=== PATIENT | male | born 1950 | race Caucasian/White ===

== ENCOUNTER 2017-03-27 22:28 | Emergency (ER) | payer MEDICARE, OTHER ==
[~2017-03-27] VITALS: Ht 180.3 cm; Wt 95.7 kg
--- OUTSIDE RECORDS SUMMARY | ~2017-03-27 | XMS | Clinical Summary ---
Demographics + + + | Address | [address] | | | [place] [address] | + + + | Home Phone | | + + + | Preferred Language | Unknown | + + + | Marital Status | Single | + + + | Scientologist Affiliation | Unknown | + + + | Race | White | + + + | Ethnic Group | Not or | + + + Author + + + | Author | [facility] | + + + | Organization | [facility] | + + + | Address | Unknown | + + + | Phone | Unavailable | + + + Care Team Providers + +------+ + | Care Assistant Professor Name | Role | Phone | + +------+ + PP | Unavailable | + +------+ + Source Comments JI is fully live on both [facility] and [facility] InPatient.[facility] Allergies Not on File Current Medications Not on file Active Problems Not on file Social History + +-------+ +--------+------+ | Tobacco Use | Types | Packs/Day | Years | Date | | | | | Used | | + +-------+ +--------+------+ | Never Assessed | | | | | + +-------+ +--------+------+ + + + | Sex Assigned at | Date Recorded | | | | + + + | Not on file | | + + + Plan of Treatment + + + + + | Health Maintenance | Due Date | Last Done | Comments | + + + + + | INFLUENZA VACCINE | | | | | (FLU SHOT) | 7 | | | + + + + + Results Not on filefrom Last 3 Months"
--- OUTSIDE RECORDS SUMMARY | ~2017-03-27 | XMS | Clinical Summary ---
Demographics + + + | Address | [address] | | | [place] [address] | + + + | Home Phone | | + + + | Preferred Language | Unknown | + + + | Marital Status | Single | + + + | Pentecostal Affiliation | Unknown | + + + | Race | White | + + + | Ethnic Group | Not or | + + + Author + + + | Author | [facility] | + + + | Organization | [facility] | + + + | Address | Unknown | + + + | Phone | Unavailable | + + + Care Team Providers + +------+ + | Care Electronic Prepress System Operator Name | Role | Phone | + +------+ + PP | Unavailable | + +------+ + Source Comments JI is fully live on both [facility] and [facility] InPatient.[facility] Allergies Not on File Current Medications Not [...]
[~2017-03-27 22:28] MED LIST: "\\\"BP MED\\\""; ASPIR-TRIN325 MG PO; GLUCOPHAGE500 MG PO; GLUCOVANCE PO; LIPITOR PO; NORCO 5-325 TA1 EACH PO; PRANDIN; PRAVACHOL20 MG PO; PREDNISONE20 MG PO; VALIUM5 MG PO
[2017-03-28] MEDS ORDERED: NORCO 5-325 TA1 EACH PO (00:56)
== END 2017-03-28 01:40 | disposition home or self-care (01) ==
LOC: ED 22:28
DX: N23 Unspecified renal colic (principal); E11.9 Type 2 diabetes mellitus without complications; E78.00 Pure hypercholesterolemia, unspecified; G43.909 Migraine, unspecified, not intractable, without status migrainosus; I10 Essential (primary) hypertension; Z79.899 Other long term (current) drug therapy; Z79.84 Long term (current) use of oral hypoglycemic drugs
CPT/HCPCS: 74177; 80053; 81001; 83690; 85025; 96361; 96374; 96375; 96376; 99284; J1170; J2405; J7030; Q9967

== ENCOUNTER 2018-08-09 03:59 | Emergency (ER) | payer MEDICARE, OTHER ==
[~2018-08-09] VITALS: Ht 180.3 cm; Wt 95.2 kg
--- OUTSIDE RECORDS SUMMARY | ~2018-08-09 | XMS | Clinical Summary ---
Demographics + + + | Address | [address] | | | [place] [address] | + + + | Home Phone | | + + + | Preferred Language | Unknown | + + + | Marital Status | | + + + | Yarsani Affiliation | Unknown | + + + | Race | Unknown | + + + | Ethnic Group | Unknown | + + + Author + + + | Author | [facility] | | | and Husseinana | + + + | Organization | [facility] | | | and [place] | + + + | Address | Unknown | + + + | Phone | Unavailable | + + + Support + + + + + | Name | Relationship | Address | Phone | + + + + + | Vikram Ojeda | JESSICA | [address] | | | | | [place], [place] | | | | | [address] | | + + + + + | Ngoc Ojeda | ECON | [address] | | | | | [place], [place] | | | | | [address] | | + + + + + Care Team Providers + +------+ + | Care Coil Winding Supervisor Name | Role | Phone | + +------+ + | Igor Doll DO | PP | | + +------+ + Allergies No Known Allergies Current Medications + + +--------+---------+------+------+-------+ | Prescription | Sig. | Disp. | Refills | Star | End | Statu | | | | | | t | Date | s | | | | | | Date | | | + + +--------+---------+------+------+-------+ | | 2 tablets by mouth | | | 01/24 | | Activ | | glyBURIDE-metformin | two times daily | | | 08/12 | | e | | (GLUCOVANCE) 2.5-500 | | | | 12 | | | | MG per tablet | | | | | | | + + +--------+---------+------+------+-------+ | moexipril | Take 15 mg by mouth | | | 01/24 | | Activ | | (UNIVASC) 15 MG | Daily. | | | 08/12 | | e | | tablet | | | | 12 | | | + + +--------+---------+------+------+-------+ | pravastatin | Take 1 tablet daily | | | 01/24 | | Activ | | (PRAVACHOL) 80 MG | as directed | | | 08/12 | | e | | tablet | | | | 12 | | | + + +--------+---------+------+------+-------+ | | Take 1 tablet by | | | | | Activ | | aspirin-acetaminophe | mouth as needed. | | | | | e | | n-caffeine (EXCEDRIN | | | | | | | | EXTRA STRENGTH) | | | | | | | | 250-250-65 MG per | | | | | | | | tablet | | | | | | | + + +--------+---------+------+------+-------+ | ondansetron | Take 4 mg by mouth | | | | | Activ | | (ZOFRAN ODT) 4 mg | every 8 hours as | | | | | e | | disintegrating | needed for Nausea. | | | | | | | tablet | | | | | | | + + +--------+---------+------+------+-------+ | | Take 1-2 tablets by | 25 | 0 | 11/0 | | Activ | | HYDROcodone-acetamin | mouth every 4 hours | tablet | | 3/20 | | e | | ophen (NORCO) 5-325 | as needed for Pain. | | | 17 | | | | mg per tablet | | | | | | | + + +--------+---------+------+------+-------+ Active Problems + + + | Problem | Noted Date | + + + | DDD (degenerative disc disease), lumbar - mild, worst at L4-L5 | 11/03/2012 | | where there is mild central and foraminal stenosis | | + + + | Leg pain, left - uncertain etiology. Likely referred from | 06/23/2012 | | lumbosacral region | | + + + | SACROILIITIS | 12/11/2011 | + + + | ARTHRITIS, LUMBAR SPINE | 12/11/2011 | + + + | LOW BACK PAIN, CHRONIC | | + + + | DIABETES MELLITUS, WITHOUT COMPLICATIONS | | + + + Encounters +--------+ + + + + | Date | Type | Specialty | Care Team | Description | +--------+ + + + + | 07/23/ | Ancillary | | Provider, | | | 2019 | Orders | | MD Supriya | | +--------+ + + + + | 05/22/ | Imaging | | Provider, | | | 2018 | Exam | | Historical, MD | | +--------+ + + + + from Last 3 Months Social History + +-------+ +--------+------+ | Tobacco Use | Types | Packs/Day | Years | Date | | | | | Used | | + +-------+ +--------+------+ | Never Smoker | | | | | + +-------+ +--------+------+ + +---+---+---+ | Smokeless Tobacco: | | | | | Never Used | | | | + +---+---+---+ + + +---------+ + | Alcohol Use | Drinks/We | oz/Week | Comments | | | ek | | | + + +---------+ + | Yes | | | rarely | + + +---------+ + + + + | Sex Assigned at | Date Recorded | | | | + + + | Not on file | | + + + Last Filed Vital Signs + + + + | Vital Sign | Reading | Time Taken | + + + + | Blood Pressure | 165/75 | 03/28/20172114 PDT | + + + + | Pulse | 68 | 03/28/20172114 PDT | + + + + | Temperature | 36.5 C (97.7 F) | 03/28/20171946 PDT | + + + + | Respiratory Rate | 20 | 03/28/20172020 PDT | + + + + | Oxygen Saturation | 96% | 03/28/20172114 PDT | + + + + | Inhaled Oxygen | - | - | | Concentration | | | + + + + | Weight | 97 kg (213 lb 13.5 | 03/28/20171640 PDT | | | oz) | | + + + + | Height | 180.3 cm (5' 11") | 03/28/20171640 PDT | + + + + | Body Mass Index | 29.83 | 03/28/2017 1641 PDT | + + + + Plan of Treatment + + + + + | Health Maintenance | Due Date | Last Done | Comments | + + + + + | Vaccine: Zoster (2 | | 09/03/2011 | | | of 3) | 2 | | | + + + + + | Vaccine: | | | | | Pneumococcal 65+ | 6 | | | | Low/Medium Risk (1 | | | | | of 2 - PCV13) | | | | + + + + + | Vaccine: Influenza | | | | | (#1) | 8 | | | + + + + + | Vaccine: | | 02/16/2018 | | | Dtap/Tdap/Td (2 - | 8 | | | | Td) | | | | + + + + + Implants + +-------+------+ +--------+--------+--------+ | Implanted | Type | Area | Manufacture | Device | Expira | Model | | | | | r | | tion | / | | | | | | Identi | Date | Serial | | | | | | fier | | / Lot | + +-------+------+ +--------+--------+--------+ | Stent Uro Unvrs Sft 7fr 28cm | Stent | | ALICE JENKINS | | 10/09/ | [id number] | | - SnaImplanted: Qty: 1 on | | | INCORPORATE | | 2019 | /NA | | 03/28/2017 by Nik Smith, | | | D | | | /[id number] | | MD | | | | | | 12 | + +-------+------+ +--------+--------+--------+ Procedures + +--------+ + + + | Procedure Name | Priori | Date/Time | Associated Diagnosis | Comments | | | ty | | | | + +--------+ + + + | XR KNEE LEFT 4 + VW | Routin | 05/22/2018 | | Results for this | | | e | 0950 PST | | procedure are in the | | | | | | results section. | + +--------+ + + + from Last 3 Months Results XR Knee Left 4 + Vw (05/22/2018 0950) + + + | Narrative | Performed At | + + + | External films for comparison only | [facility] | | | | | No results will be in the chart. | | + + + + +---------+ + + | Performing | Address | City/State/Zipcode | Phone Number | | Organization | | | | + +---------+ + + | [facility] | | | | + +---------+ + + from Last 3 Months Insurance + +--------+ +--------+ + + | Payer | Benefi | Subscriber | Type | Phone | Address | | | t Plan | ID | | | | | | / | | | | | | | Group | | | | | + +--------+ +--------+ + + | MEDICARE | MEDICA | [id number] | Medica | [phone] | | | RE | | re | [phone] | | | | PART A | | | | | | | AND B | | | | | + +--------+ +--------+ + + | MODA | MODA | [id number] | Indemn | [phone] [address] [address] | | | HEALTH | | ity | [phone] | [place] [address] | | | MDCR | | | | | | | SUPPL | | | | | + +--------+ +--------+ + + + +--------+ +--------+ + + | Guarantor Name | Accoun | Relation to | Date | Phone | Billing Address | | | t Type | Patient | of | | | | | | | | | | + +--------+ +--------+ + + | NORMA OJEDA | Person | Self | [birth year] Home: | [address] | | | [address] | | [phone] | [phone] | [place], | | | [place] | | | [phone] | [place] [address] | + +--------+ +--------+ + +
--- OUTSIDE RECORDS SUMMARY | ~2018-08-09 | XMS | Encounter Summary ---
Demographics + + + | Address | [address] | | | [place] [address] | + + + | Home Phone | | + + + | Preferred Language | Unknown | + + + | Marital Status | | + + + | Synagogue Affiliation | Unknown | + + + | Race | Unknown | + + + | Ethnic Group | Unknown | + + + Author + + + | Author | [facility] | | | and [place] | + + + | Organization | [facility] | | | and [place] | + + + | Address | Unknown | + + + | Phone | Unavailable | + + + Support + + + + + | Name | Relationship | Address | Phone | + + + + + | Vikram Harrison | JESSICA | [address] | | | | | [place], [place] | | | | | [address] | | + + + + + | Ngoc Harrison | ECON | [address] | | | | | [place], [place] | | | | | [address] | | + + + + + Care Team Providers + +------+ + | Care Mirror Machine Feeder Name | Role | Phone | + +------+ + | Igor Doll DO | PCP | | + +------+ + Encounter Details +--------+ + + + + | Date | Type | Department | Care Team | Description | +--------+ + + + + | 05/22/ | Imaging | [facility] | Provider, | | | 2018 | Exam | [facility] | MD [address] | | | | | IMAGING | [address] | | | | | [phone] | [place] [address] | | +--------+ + + + + Social History + +-------+ +--------+------+ | Tobacco [...] on file | | + + + as of this encounter Plan of Treatment Not on fileas of this encounter Procedures + +--------+ + + + | [...] section. | + +--------+ + + + in this encounter Results XR Knee Left 4 + Vw [...] | | | + +---------+ + + in this encounter Visit Diagnoses Not on filein this encounter"
--- OUTSIDE RECORDS SUMMARY | ~2018-08-09 | XMS | Encounter Summary ---
Demographics + + + | Address | [address] | | | [place] [address] | + + + | Home Phone | | + + + | Preferred Language | Unknown | + + + | Marital Status | | + + + | Scientologist Affiliation | Unknown | + + + | Race | Unknown | + + + | Ethnic Group | Unknown | + + + Author + + + | Author | [facility] | | | and [place] | + + + | Organization | [facility] | | | and Husseinana [...] [place], [place] | | | | | [address] | | + + + + + | Ngoc Harrison | ECON | [address] | | | | | [place], [place] | | | | | [address] | | + + + + + Care Team Providers + +------+ + | Care Aquatics Manager Name | Role | Phone | + [...] [address]iel [address]A | | | | | [phone] | [place] [address] | | +--------+ + + + + [...]
--- OUTSIDE RECORDS SUMMARY | ~2018-08-09 | XMS | Clinical Summary ---
Demographics + + + | Address | [address] | | | [place] [address] | + + + | Home Phone | | + + + | Preferred Language | Unknown | + + + | Marital Status | Single | + + + | Spiritism Affiliation | Unknown | + + + | Race | Unknown | + + + | Ethnic Group | Unknown | + + + Author + + + | Author | [facility] | + + + | Organization | [facility] | + + + | Address | Unknown | + + + | Phone | Unavailable | + + + Support + + + + + | Name | Relationship | Address | Phone | + + + + + | Ngoc Ojeda | ECON | [address] | | | | | [place] | | | | | [address] | | + + + + + | Vikram Ojeda | ECON | Unknown | | + + + + + | Detailed,Message | ECON | Unknown | | + + + + + Care Team Providers + +------+ + | Care Laborer Construction Or Leak Gang Name | Role | Phone | + +------+ + | Igor Doll MD | PP | | + +------+ + Allergies No Known Allergies Current Medications + + +-------+---------+------+------+-------+ | Prescription | Sig. | Disp. | Refills | Star | End | Statu | | | | | | t | Date | s | | | | | | Date | | | + + +-------+---------+------+------+-------+ | atorvastatin | Take 40 mg by mouth | | | | | Activ | | (LIPITOR) 40 MG | nightly. | | | | | e | | tablet | | | | | | | + + +-------+---------+------+------+-------+ | repaglinide | Take 2 mg by mouth 3 | | | | | Activ | | (PRANDIN) 2 MG | (three) times daily | | | | | e | | tablet | before meals. | | | | | | + + +-------+---------+------+------+-------+ | moexipril | Take 15 mg by mouth | | | | | Activ | | (UNIVASC) 15 MG | daily. | | | | | e | | tablet | | | | | | | + + +-------+---------+------+------+-------+ | | Take 1 tablet by | | | | | Activ | | glyBURIDE-metformin | mouth 2 (two) times | | | | | e | | (GLUCOVANCE) 2.5-500 | daily with meals. | | | | | | | MG per tablet | | | | | | | + + +-------+---------+------+------+-------+ | | Take 1 tablet by | | | | | Activ | | pseudoephedrine-acet | mouth every 4 (four) | | | | | e | | aminophen (TYLENOL | hours as needed. | | | | | | | SINUS) 30-500 MG | | | | | | | | TABS | | | | | | | + + +-------+---------+------+------+-------+ Active Problems + + + | Problem | Noted Date | + + + | Cervical myofascial pain syndrome | 11/01/2014 | + + + Family History + + +------+ + | Medical History | Relation | Name | Comments | + + +------+ + | Cancer | Father | | Brain | + + +------+ + | Cancer | Mother | | Lung | + + +------+ + + +------+ + + | Relation | Name | Status | Comments | + +------+ + + | Father | | | | + +------+ + + | Mother | | | | + +------+ + + Social History + +-------+ +--------+------+ [...] +---------+ + | Yes | | | occasionally | + + +---------+ + + + + | Sex Assigned at | Date Recorded | | | | + + + | Not on file | | + + + Last Filed Vital Signs + + + + | Vital Sign | Reading | Time Taken | + + + + | Blood Pressure | 112/71 | 11/01/2014 1:24 PM PDT | + + + + | Pulse | 52 | 11/01/2014 1:24 PM PDT | + + + + | Temperature | - | - | + + + + | Respiratory Rate | - | - | + + + + | Oxygen Saturation | - | - | + + + + | Inhaled Oxygen | - | - | | Concentration | | | + + + + | Weight | 95.3 kg (210 lb) | 11/01/2014 1:24 PM PDT | + + + + | Height | 180.3 cm (5' 11") | 11/01/2014 1:24 PM PDT | + + + + | Body Mass Index | 29.29 | 11/01/2014 1:24 PM PDT | + + + + Plan of Treatment + + + + + | Health Maintenance | Due Date | Last Done | Comments | + + + + + | Vaccine: | | | | | Dtap/Tdap/Td (1 - | 0 | | | | Tdap) | | | | + + + + + | Vaccine: Zoster (1 | | | | | of 2) | 1 | | | + + + + [...] + Results Not on filefrom Last 3 Months Insurance + +--------+ +------+-------+---------+ | Payer | Benefi | Subscriber | Type | Phone | Address | | | t Plan | ID | | | | | | / | | | | | | | Group | | | | | + +--------+ +------+-------+---------+ | [employer] | ODS | [id number] | | | | | | HEALTH | | | | | | | PLAN | | | | | + +--------+ +------+-------+---------+ + +--------+ +--------+ + + | Guarantor Name | Accoun | Relation to | Date | Phone | Billing Address | | | t Type | Patient | of | | | | | | | | | | + +--------+ +--------+ + + | NORMA OJEDA | Person | Self [birth year] Home: | [address] | | [address] | | 1950 | [phone] | [place] [address] | | | [place] | | | [address] | | + +--------+ +--------+ + +
--- OUTSIDE RECORDS SUMMARY | ~2018-08-09 | XMS | Clinical Summary ---
Demographics + + + | Address | [address] | | | [place] [address] | + + + | Home Phone | | + + + | Preferred Language | Unknown | + + + | Marital Status | Single | + + + | Cheondoism Affiliation | Unknown | + + + | Race | Unknown | + + + | Ethnic Group | Unknown | + + + Author + + + | Author | [facility] | + + + | Organization | [facility] | + + + | Address | Unknown | + + + | Phone | Unavailable | + + + Support + + + + + | Name | Relationship | Address | Phone | + + + + + | Ngoc Ojeda | ECON | [address] | | | | | [place] | | | | | [address] | | + + + + + | Vikram Ojeda | ECON | Unknown | | + + + + + | Detailed,Message | ECON | Unknown | | + + + + + Care Team Providers + +------+ + | Care Coffee Shop Aide Name | Role | Phone | + [...] | [employer]AN | ODS | [id number] | | | | | | HEALTH [...] | 1950 | [phone] | [place] [address] | | | [place] | | | [address] | | + +--------+ +--------+ + +
--- OUTSIDE RECORDS SUMMARY | ~2018-08-09 | XMS | Clinical Summary ---
Demographics + + + | Address | [address] | | | [place] [address] | + + + | Home Phone | | + + + | Preferred Language | Unknown | + + + | Marital Status | Single | + + + | Methodist Affiliation | Unknown | + + + | Race | White | + + + | Ethnic Group | Not or | + + + Author + + + | Organization | Unknown | + + + | Address | Unknown | + + + | Phone | Unavailable | + + + Care Team Providers + +------+ + | Care Elementary Spanish Teacher Name | Role | Phone | + +------+ + PP | Unavailable | + +------+ + Source Comments JI is fully live on both [facility] and [facility] InPatient.[facility] Allergies Not on File Current Medications [...] | + + + + + | Pneumococcal (Adult) | | | | | (1 of 2 - PCV13) | 6 | | | + + + + + | Influenza (Flu) | | | | | vaccination (#1) | 8 | | | + + + + + Results Not on filefrom Last 3 Months"
--- OUTSIDE RECORDS SUMMARY | ~2018-08-09 | XMS | Encounter Summary ---
Demographics + + + | Address | [address] | | | [place] [address] | + + + | Home Phone | | + + + | Preferred Language | Unknown | + + + | Marital Status | | + + + | Rastafari Affiliation | Unknown | + + + | Race | Unknown | + + + | Ethnic Group | Unknown | + + + Author + + + | Author | [facility] | | | and [place] | + + + | Organization | [facility] | | | and Husseinana [...] [place], [place] | | | | | [address] | | + + + + + | Ngoc Harrison | ECON | [address] | | | | | [place], [place] | | | | | [address] | | + + + + + Care Team Providers + +------+ + | Care Account Adjuster Name | Role | Phone | + +------+ + | Igor Doll DO | PCP | | + +------+ + Encounter Details +--------+ + + + + | Date | Type | Department | Care Team | Description | +--------+ + + + + | 07/23/ | Ancillary | [facility] | Provider, | | | 2019 | Orders | MED CTR EXTER[facility] | MD [address] | | | | | IMAGING | [address] | | | | | [phone] | [place] [address] | | +--------+ + + + + [...] Treatment Not on fileas of this encounter Results XR Knee Left 4 [...]
--- OUTSIDE RECORDS SUMMARY | ~2018-08-09 | XMS | Encounter Summary ---
Demographics + + + | Address | [address] | | | [place] [address] | + + + | Home Phone | | + + + | Preferred Language | Unknown | + + + | Marital Status | | + + + | Amish Affiliation | Unknown | + + + | Race | Unknown | + + + | Ethnic Group | Unknown | + + + Author + + + | Author | [facility] | | | and [place] | + + + | Organization | [facility] | | | and Husseinana [...] [place], [place] | | | | | [address] | | + + + + + | Ngoc Harrison | ECON | [address] | | | | | [place], [place] | | | | | [address] | | + + + + + Care Team Providers + +------+ + | Care Animal Daycare Provider Name | Role | Phone | + [...] [address] | | | | | [phone] | [place] [address] | | +--------+ + + + + [...]
--- OUTSIDE RECORDS SUMMARY | ~2018-08-09 | XMS | Clinical Summary ---
Demographics + + + | Address | [address] | | | [place] [address] | + + + | Home Phone | | + + + | Preferred Language | Unknown | + + + | Marital Status | | + + + | Adventist Affiliation | Unknown | + + + | Race | Unknown | + + + | Ethnic Group | Unknown | + + + Author + + + | Author | [facility] | | | and [place] | + + + | Organization | [facility] | | | and Husseinana [...] [place], [place] | | | | | [address] | | + + + + + | Ngoc Ojeda | ECON | [address] | | | | | [place], [place] | | | | | [address] | | + + + + + Care Team Providers + +------+ + | Care School Janitor Name | Role | Phone | + [...] | ALICE JENKINS | | 10/09/ | [id number] | | - SnaImplanted: Qty: 1 on | | | INCORPORATE | | 2019 | /NA | | 03/28/2017 by Nik Smith, | | | D | | | /[id number] | | MD | | | | [...] + + | MEDICARE | MEDICA | [id number] | Medica | [phone] | | | RE | | re | [phone] | | | | PART A | | | | | | | AND B | | | | | + +--------+ +--------+ + + | MODA | MODA | [id number] | Indemn | [phone] | [address] [address] | | | HEALTH | | ity | [phone] | [place] [address] | | | MDCR | | | [...] | | | owen | | | [address] | [place] [address] | + +--------+ +--------+ + +
--- OUTSIDE RECORDS SUMMARY | ~2018-08-09 | XMS | Clinical Summary ---
Demographics + + + | Address | [address] | | | [place] [address] | + + + | Home Phone [...] Team Providers + +------+ + | Care Tester Printed Circuit Boards Name | Role | Phone | + +------+ + PP | Unavailable | + +------+ + Source Comments JI is fully live on both [facility] and [facility] In[facility] Allergies Not on File Current [...]
[~2018-08-09 03:59] MED LIST changes: -"\\\"BP MED\\\""; +ZOCOR40 MG PO
[2018-08-09] MEDS ORDERED: NORCO 5-325 TA1 EACH PO (04:31)
[2018-08-09] MEDS ORDERED: MELOXICAM15 MG PO (04:31)
== END 2018-08-09 04:37 | disposition home or self-care (01) ==
LOC: ED 03:59
DX: M25.562 Pain in left knee (principal); E11.9 Type 2 diabetes mellitus without complications; I10 Essential (primary) hypertension; E78.00 Pure hypercholesterolemia, unspecified; Z79.84 Long term (current) use of oral hypoglycemic drugs; Z79.899 Other long term (current) drug therapy
CPT/HCPCS: 99283